=== PATIENT | male | born 1950 | race Caucasian/White ===

== ENCOUNTER → 2017-11-20 | Outpatient (CLI) | payer OTHER ==
[~2017-11-20] MED LIST: ATORVASTATIN CA20 MG PO; Aspirin EC81 MG PO; METF500C PO; OLME5TAB PO
== END | disposition home or self-care (01) ==
LOC: LAB EV 16:30
DX: E11.9 Type 2 diabetes mellitus without complications (principal)
CPT/HCPCS: 82043

== ENCOUNTER → 2018-11-24 | Outpatient (CLI) | payer OTHER | END | disposition home or self-care (01) | LOC: LAB EV 10:25 → LAB SHORT 10:25 | DX: E11.9 Type 2 diabetes mellitus without complications (principal) | CPT/HCPCS: 82043 ==

== ENCOUNTER 2022-04-12 10:54 | Day surgery (SDC) | payer MEDICARE, BC ==
[~2022-04-12] VITALS: Ht 177.8 cm; Wt 105.4 kg
--- NOTE | 2022-04-12 11:26 | NUR ---
04/12/22 1126 [facility]ED[facility]:[id number]
== END 2022-04-12 12:34 | disposition home or self-care (01) ==
LOC: ORSCSDS 10:54
PROVIDERS: Ophthalmology
PROC: 08RK3JZ Replacement of Left Lens with Synthetic Substitute, Percutaneous Approach (ICD-10-PCS; principal; 2022-04-12 12:00)
DX: H25.12 Age-related nuclear cataract, left eye (principal); E11.9 Type 2 diabetes mellitus without complications; I10 Essential (primary) hypertension; G47.33 Obstructive sleep apnea (adult) (pediatric); Z79.84 Long term (current) use of oral hypoglycemic drugs; Z79.899 Other long term (current) drug therapy; Z79.82 Long term (current) use of aspirin
CPT/HCPCS: 82947; J2001; J2250; J3010; J3301; J7040; V2632

== ENCOUNTER 2022-04-26 12:12 | Day surgery (SDC) | payer MEDICARE, BC ==
[~2022-04-26] VITALS: Ht 177.8 cm; Wt 104.2 kg
--- NOTE | 2022-04-26 13:04 | NUR ---
04/26/22 1304 Gregory Arceo CALL LIGHT WITHIN REACH. TETRACAINE IN THE RIGHT EYAT [id number].
== END 2022-04-26 14:26 | disposition home or self-care (01) ==
LOC: ORSCSDS 12:12
PROVIDERS: Ophthalmology
PROC: 08RJ3JZ Replacement of Right Lens with Synthetic Substitute, Percutaneous Approach (ICD-10-PCS; principal; 2022-04-26 13:30)
DX: H25.11 Age-related nuclear cataract, right eye (principal); Z96.1 Presence of intraocular lens; I10 Essential (primary) hypertension; E11.9 Type 2 diabetes mellitus without complications; K21.9 Gastro-esophageal reflux disease without esophagitis; G47.33 Obstructive sleep apnea (adult) (pediatric); E66.9 Obesity, unspecified; Z68.33 Body mass index [BMI] 33.0-33.9, adult; Z79.82 Long term (current) use of aspirin; Z79.84 Long term (current) use of oral hypoglycemic drugs; Z79.899 Other long term (current) drug therapy
CPT/HCPCS: 82947; J2001; J2250; J3010; J3301; J7040; V2632

== ENCOUNTER 2025-04-20 01:26 | Day surgery (SDC) | payer MEDICARE, BC ==
[2025-04-20] MEDS ORDERED: PYRI60 PO (09:24)
[2025-04-20] MEDS ORDERED: MYCOPHENOLATE500 M2 PO (09:25)
[2025-04-20 09:26] VITALS: BP 141/90
[2025-04-20] MEDS ORDERED: NS IV SCH (09:35)
[2025-04-20] MEDS ORDERED: EFGARTIGIMOD ALFA FCAB IV SCH (09:35)
[2025-04-20 12:00] VITALS: BP 150/73
== END 2025-04-20 12:01 | disposition home or self-care (01) ==
LOC: ATC 01:26
DX: G70.00 Myasthenia gravis without (acute) exacerbation (principal); E11.9 Type 2 diabetes mellitus without complications; Z79.84 Long term (current) use of oral hypoglycemic drugs; Z79.899 Other long term (current) drug therapy
CPT/HCPCS: 96365; J9332

== ENCOUNTER 2025-04-29 03:18 | Day surgery (SDC) | payer MEDICARE, BC ==
[~2025-04-29 03:18] MED LIST changes: +MYCOPHENOLATE500 M2 PO; +PYRI60 PO
[2025-04-29 14:00] VITALS: BP 162/91
[2025-04-29 14:07] VITALS: BP 98/59
[2025-04-29] MEDS ORDERED: NS IV SCH (14:10)
[2025-04-29] MEDS ORDERED: EFGARTIGIMOD ALFA FCAB IV SCH (14:10)
[2025-04-29 15:55] VITALS: BP 154/68
[2025-04-29 16:28] VITALS: BP 160/73
== END 2025-04-29 16:55 | disposition home or self-care (01) ==
LOC: ATC 03:18
DX: G70.00 Myasthenia gravis without (acute) exacerbation (principal); E11.9 Type 2 diabetes mellitus without complications; Z79.82 Long term (current) use of aspirin; Z79.84 Long term (current) use of oral hypoglycemic drugs
CPT/HCPCS: 96365; J9332

== ENCOUNTER 2025-05-05 02:51 | Day surgery (SDC) | payer MEDICARE, BC ==
[2025-05-05] MEDS ORDERED: NS IV SCH (06:00)
[2025-05-05] MEDS ORDERED: EFGARTIGIMOD ALFA FCAB IV SCH (06:00)
[2025-05-05] MEDS ORDERED: [UNRECOGNIZED DRUG - OTHER] IV (15:21)
[2025-05-05 15:22] VITALS: BP 127/66
--- NOTE | 2025-05-05 17:59 | NUR ---
ONE HOUR POST INFUSION OBSERVATION COMPLETED. PT REPORTS FEELING WELL. NO SIDE EFFECTS FROM MEDICATION. IV D/C'D AND PT SENT HOME.
== END 2025-05-05 17:52 | disposition home or self-care (01) ==
LOC: ATC 02:51
DX: G70.00 Myasthenia gravis without (acute) exacerbation (principal); E11.9 Type 2 diabetes mellitus without complications; Z79.624 Long term (current) use of inhibitors of nucleotide synthesis; Z79.82 Long term (current) use of aspirin; Z79.84 Long term (current) use of oral hypoglycemic drugs; Z79.899 Other long term (current) drug therapy
CPT/HCPCS: 96365; J9332

== ENCOUNTER 2025-05-12 02:31 | Day surgery (SDC) | payer MEDICARE, BC ==
[~2025-05-12 02:31] MED LIST changes: +[UNRECOGNIZED DRUG - OTHER] IV
[2025-05-12] MEDS ORDERED: EFGARTIGIMOD ALFA FCAB IV SCH (14:40)
[2025-05-12] MEDS ORDERED: NS IV SCH (14:40)
[2025-05-12 17:16] VITALS: BP 143/78
--- NOTE | 2025-05-12 17:47 | NUR ---
1HR OBS AFTER INFUSION. VSS. PT STEPHANE WELL WITH NO REACTION.
== END 2025-05-12 17:19 | disposition home or self-care (01) ==
LOC: ATC 02:31
DX: G70.00 Myasthenia gravis without (acute) exacerbation (principal); E11.9 Type 2 diabetes mellitus without complications; Z79.84 Long term (current) use of oral hypoglycemic drugs; Z79.899 Other long term (current) drug therapy
CPT/HCPCS: 96365; J9332

== ENCOUNTER 2025-06-16 00:54 | Day surgery (SDC) | payer MEDICARE, BC ==
[2025-06-16] MEDS ORDERED: NS IV SCH (14:20)
[2025-06-16] MEDS ORDERED: EFGARTIGIMOD ALFA FCAB IV SCH (14:20)
[2025-06-16 14:24] VITALS: BP 157/70
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
== END 2025-06-16 16:52 | disposition home or self-care (01) ==
LOC: ATC 00:54
DX: G70.00 Myasthenia gravis without (acute) exacerbation (principal); E11.9 Type 2 diabetes mellitus without complications; Z79.84 Long term (current) use of oral hypoglycemic drugs
CPT/HCPCS: 96365; J9332

== ENCOUNTER 2025-06-23 02:33 | Day surgery (SDC) | payer MEDICARE, BC ==
[~2025-06-23] VITALS: Wt 101.6 kg
[2025-06-23] MEDS ORDERED: NS IV SCH (06:00)
[2025-06-23] MEDS ORDERED: EFGARTIGIMOD ALFA FCAB IV SCH (06:00)
[2025-06-23 14:21] VITALS: BP 167/77
--- NOTE | 2025-06-23 16:49 | NUR ---
1 HOUR POST OBSERVATION PT HAS COMPLETED 1 HOUR OF OBSERVATION POST [facility] INFUSION. DENIES COMPLAINTS. STATES "I'M ALREADY STARTING TO NOTICE A DIFFERENCE".
== END 2025-06-23 16:49 | disposition home or self-care (01) ==
LOC: ATC 02:33
DX: G70.00 Myasthenia gravis without (acute) exacerbation (principal); E11.9 Type 2 diabetes mellitus without complications; Z79.84 Long term (current) use of oral hypoglycemic drugs; Z79.899 Other long term (current) drug therapy
CPT/HCPCS: 96365; J9332

== ENCOUNTER 2025-06-30 00:26 | Day surgery (SDC) | payer MEDICARE, BC ==
[2025-06-30] MEDS ORDERED: NS IV SCH (06:00)
[2025-06-30] MEDS ORDERED: EFGARTIGIMOD ALFA FCAB IV SCH (06:00)
[2025-06-30 14:20] VITALS: BP 140/69
--- NOTE | 2025-06-30 16:29 | NUR ---
PT WAS DISCHARGED HOME WITH HIS 30 P COMPLETION OF INFUSION. NO S/S OF REACTION TO MED.
--- NOTE | 2025-06-30 17:04 | NUR ---
PT WAS DISCHARGED HOME ONE HOUR P INFUSION WAS COMPLETED. PT HAD NO C/O ADVERSE REACTION TO MED.
== END 2025-06-30 16:38 | disposition home or self-care (01) ==
LOC: ATC 00:26
DX: G70.00 Myasthenia gravis without (acute) exacerbation (principal); E11.9 Type 2 diabetes mellitus without complications; Z79.84 Long term (current) use of oral hypoglycemic drugs
CPT/HCPCS: 96365; J9332

== ENCOUNTER 2025-07-07 01:49 | Day surgery (SDC) | payer MEDICARE, BC ==
[2025-07-07] MEDS ORDERED: NS IV SCH (06:00)
[2025-07-07] MEDS ORDERED: EFGARTIGIMOD ALFA FCAB IV SCH (06:00)
[2025-07-07 14:21] VITALS: BP 158/77
== END 2025-07-07 17:21 | disposition home or self-care (01) ==
LOC: ATC 01:49
DX: G70.00 Myasthenia gravis without (acute) exacerbation (principal); E11.9 Type 2 diabetes mellitus without complications; Z79.624 Long term (current) use of inhibitors of nucleotide synthesis; Z79.82 Long term (current) use of aspirin; Z79.84 Long term (current) use of oral hypoglycemic drugs; Z79.899 Other long term (current) drug therapy
CPT/HCPCS: 96365; 99211; J9332

== ENCOUNTER 2025-07-26 00:21 | Day surgery (SDC) | payer MEDICARE, BC ==
[2025-07-26 13:35] VITALS: BP 144/70
[2025-07-26] MEDS ORDERED: NS IV SCH (13:50)
[2025-07-26] MEDS ORDERED: EFGARTIGIMOD ALFA FCAB IV SCH (13:50)
== END 2025-07-26 16:30 | disposition home or self-care (01) ==
LOC: ATC 00:21
DX: G70.00 Myasthenia gravis without (acute) exacerbation (principal); E11.9 Type 2 diabetes mellitus without complications
CPT/HCPCS: 96365; 96366; J9332

== ENCOUNTER 2025-08-04 00:45 | Day surgery (SDC) | payer MEDICARE, BC ==
[~2025-08-04] VITALS: Wt 103.1 kg
[2025-08-04 14:17] VITALS: BP 173/88
[2025-08-04] MEDS ORDERED: NS IV SCH (14:35)
[2025-08-04] MEDS ORDERED: EFGARTIGIMOD ALFA FCAB IV SCH (14:35)
== END 2025-08-04 16:52 | disposition home or self-care (01) ==
LOC: ATC 00:45
DX: G70.00 Myasthenia gravis without (acute) exacerbation (principal); E11.9 Type 2 diabetes mellitus without complications; Z79.82 Long term (current) use of aspirin; Z79.84 Long term (current) use of oral hypoglycemic drugs; Z79.899 Other long term (current) drug therapy
CPT/HCPCS: 96365; J9332

== ENCOUNTER 2025-08-11 00:39 | Day surgery (SDC) | payer MEDICARE, BC ==
[~2025-08-11] VITALS: Wt 103.0 kg
[2025-08-11] MEDS ORDERED: EFGARTIGIMOD ALFA FCAB IV SCH (06:00)
[2025-08-11] MEDS ORDERED: NS IV SCH (06:00)
[2025-08-11 14:01] VITALS: BP 141/70
[2025-08-11 16:20] VITALS: BP 158/76
== END 2025-08-11 16:21 | disposition home or self-care (01) ==
LOC: ATC 00:39
DX: G70.00 Myasthenia gravis without (acute) exacerbation (principal); E11.9 Type 2 diabetes mellitus without complications; Z79.84 Long term (current) use of oral hypoglycemic drugs; Z79.899 Other long term (current) drug therapy
CPT/HCPCS: 96365; J9332

== ENCOUNTER 2025-08-18 01:49 | Day surgery (SDC) | payer MEDICARE, BC ==
[2025-08-18 14:10] VITALS: BP 174/72
[2025-08-18] MEDS ORDERED: NS IV SCH (14:20)
[2025-08-18] MEDS ORDERED: EFGARTIGIMOD ALFA FCAB IV SCH (14:20)
== END 2025-08-18 16:40 | disposition home or self-care (01) ==
LOC: ATC 01:49
DX: G70.00 Myasthenia gravis without (acute) exacerbation (principal); E11.9 Type 2 diabetes mellitus without complications; Z79.624 Long term (current) use of inhibitors of nucleotide synthesis; Z79.82 Long term (current) use of aspirin; Z79.84 Long term (current) use of oral hypoglycemic drugs; Z79.899 Other long term (current) drug therapy
CPT/HCPCS: 96365; 96413; J9332